=== PATIENT | female | born 1985 | race Caucasian/White ===

== ENCOUNTER 2021-02-15 12:41 | Day surgery (SDC) | payer MEDICARE ==
[2021-02-15] MEDS ORDERED: Depo-Medrol 40 MG/ML IM ONE (12:42)
[2021-02-15] MEDS ORDERED: BUPIVACAINE 0.5% VIAL IJ ONE (12:42)
[2021-02-15] MEDS ORDERED: DIPRIVAN 200 MG/20 ML IV ONE (16:18)
[2021-02-15] MEDS ORDERED: Lactated Ringers 1,000 ML IV ONE (16:33)
--- NOTE | 2021-02-15 18:07 | XRAY ---
Indication: Right knee injection. Intraoperative fluoroscopy provided for 13 seconds. Single digital spot image submitted for interpretation demonstrates needle tip projecting over the right femur intercondylar notch. Small amount of contrast injected for needle tip placement. Correlate with intraoperative findings/report.
--- NOTE | 2021-02-16 08:54 | XRAY ---
13 seconds fluoroscopy time in surgery for intra-articular and pes anserine injections of the right knee.
== END 2021-02-15 16:47 | disposition home or self-care (01) ==
LOC: SDC-PAIN 12:41
PROVIDERS: ATTEND Psychiatry & Neurology Pain Medicine
DX: M17.11 Unilateral primary osteoarthritis, right knee (principal); I10 Essential (primary) hypertension; J45.909 Unspecified asthma, uncomplicated; F32.9 Major depressive disorder, single episode, unspecified; F41.9 Anxiety disorder, unspecified
CPT/HCPCS: 20610; 73560; 77002; 84703; J1030; J2704; Q9966